=== PATIENT | male | born 1970 | race Two or more races ===

== ENCOUNTER 2024-02-26 16:19 | Emergency (ER) | payer OTHER ==
[~2024-02-26] VITALS: Ht 180.3 cm; Wt 72.6 kg
[2024-02-26] MEDS ORDERED: LIDOCAINE HCL 1% 10ML VIAL PERCUT ONE (17:15)
[2024-02-26] MEDS ORDERED: TETANUS & DIPHTHERIA TOX,ADULT 0.5 ML VIAL IM ONE (18:00)
== END 2024-02-26 18:44 | disposition home or self-care (01) ==
LOC: ER 16:21
DX: S51.812A Laceration without foreign body of left forearm, initial encounter (principal); S61.411A Laceration without foreign body of right hand, initial encounter; X58.XXXA Exposure to other specified factors, initial encounter; Y93.89 Activity, other specified; Y92.89 Other specified places as the place of occurrence of the external cause; Y99.8 Other external cause status; Z88.6 Allergy status to analgesic agent
CPT/HCPCS: 12002; 90471; 90714; J1670